=== PATIENT | male | born 1950 | race Asian ===

== ENCOUNTER 2017-04-12 12:49 | Inpatient (IN) | payer MEDICARE ==
[~2017-04-12] VITALS: Wt 70.0 kg
--- NOTE | 2017-04-12 13:09 | ERD ---
ER Documentation Chief Complaint Chief Complaint Patient sent to the emergency room for initiation of palliative care HPI This is a 66-year-old gentleman with chronic respiratory failure, trach, G-tube , chronic encephalopathy who presents for initiation of palliative care. I spoke to Dr. Polanco, palliative care medicine, who states that the patient is being transferred from group home facility because care is inadequate for palliation. He would like the patient admitted under his service for initiation of palliative care. He is okay with fluids. Patient arrives nonverbal, further history is limited other than it was noted the patient is having fevers on and off and possibly has an infection. ROS Nonverbal patient Allergies Allergies: Coded Allergies: Penicillins (Unverified Allergy, Unknown, 03/09/17) Sulfa (Sulfonamide Antibiotics) (Unverified Allergy, Unknown, 03/09/17) PMhx/Soc As described in HPI FmHx Family History: No diabetes Physical Exam Vitals Vital Signs Date Time Temp Pulse Resp B/P Pulse Ox O2 Delivery O2 Flow Rate FiO2 04/12/17 13:06 99.5 85 18 114/81 95 Physical Exam General: No significant distress Head: Normocephalic, atraumatic. Eyes: No scleral icterus ENT: Moist mucous membranes Neck: Supple, no lymphadenopathy Respiratory: Rhonchorous, mechanical breath sounds Cardiovascular: RRR, no murmurs, rubs, or gallops Abdominal: Soft, non-tender, non-distended, no peritoneal signs : Deferred MSK: Limited movement of all 4 extremities, no bony abnormalities Neurologic: Limited exam, and encephalopathic, limited movement of all 4 extremities Skin: No rash Psych: Unable to assess Results 24 hrs Current Medications Medications (Trade) Dose Ordered Sig/Jenny Route PRN Reason Start Time Stop Time Status Last Admin Dose Admin Sodium Chloride (NS) 1,000 ml @ 125 mls/hr Q8H IV 04/12/17 13:00 Ondansetron HCl (Zofran Inj) 4 mg BRIDGE ORDER PRN IV NAUSEA AND/OR VOMITING 04/12/17 13:30 04/13/17 13:29 Procedures/MDM MEDICAL DECISION MAKING: This patient presents to the emergency room for initiation of palliative care. The patient has an advanced directive present consistent with DNR, DNI, comfort measures only. Speaking to Dr. Polanco, the recommendation is for fluids alone. No further interventions including no antibiotics. The patient will be initiated for palliative care. This appears to be consistent with the patient' s and family's wishes. Family is not available at time of evaluation. ER COURSE: An IV was established and the patient was started on maintenance rate normal saline. Dr. Polanco was notified and will admit the patient. Admit orders were initiated. The patient does not have a fever in the emergency room and no antipyretics are indicated at this time. The patient appears comfortable. DISPOSITION PLAN: Medical surgical admission CONSULTATION: Accepting care team and consultations: I discussed the current laboratory data, diagnostic imaging and emergency care provided. Admitting team: Dr. Polanco Admitting team indication: Insurance directed Departure Diagnosis: Primary Impression: Encephalopathy chronic Additional Impressions: Chronic respiratory failure Respiratory failure complication: unspecified whether with hypoxia or hypercapnia Qualified Code: J96.10 - Chronic respiratory failure, unspecified whether with hypoxia or hypercapnia DNR (do not resuscitate) Comfort measures only status Condition: MARIETTA Mccarty MD Apr 12, 2017 13:09
[2017-04-12] MEDS ORDERED: ONDANSETRON 4 MG INJ IV PRN (13:30)
[2017-04-12] MEDS: SOD CHLORIDE 0.9% 1,000 ML IV SCH ×2 (13:57→19:47)
[2017-04-12 14:00] VITALS: TEMP 98.9
[2017-04-12] MEDS ORDERED: ALLO100T GTB (14:02)
[2017-04-12] MEDS ORDERED: AMAN100T GTB (14:04)
[2017-04-12] MEDS ORDERED: FOLI-49 GTB (14:05)
[2017-04-12] MEDS ORDERED: AMLO5TAB4 GTB (14:05)
[2017-04-12] MEDS ORDERED: LACT1CAP4 GTB (14:07)
[2017-04-12] MEDS ORDERED: UDKCL40 GTB (14:09)
[2017-04-12] MEDS ORDERED: PROP20TA4 GTB (14:10)
[2017-04-12] MEDS ORDERED: THIA100T10 GTB (14:11)
[2017-04-12] MEDS ORDERED: CHOL4POW PO (14:12)
[2017-04-12] MEDS ORDERED: LANS30CA GTB (14:14)
[2017-04-12] MEDS ORDERED: NYST1000 PO (14:16)
[2017-04-12] MEDS ORDERED: MULTI GTB (14:18)
[2017-04-12] MEDS ORDERED: POLY15DR25 BOTH EYES (14:18)
[2017-04-12] MEDS ORDERED: MAGN400O4 GTB (14:19)
[2017-04-12] MEDS ORDERED: NA P133E10 RC (14:20)
[2017-04-12] MEDS ORDERED: BISA10SU55 RC (14:20)
[2017-04-12 14:41] VITALS: BP 123/74; PULSE 88; RESP 18
[2017-04-12] MEDS ORDERED: ALBUTEROL/IPRATROPIUM (NEB) 3 ML AMP HHN PRN (15:30)
[2017-04-12] MEDS ORDERED: morphine 2 MG INJ IV PRN (16:30)
[2017-04-12] MEDS ORDERED: LORAZEPAM 2 MG INJ IV PRN (16:30)
[2017-04-12 20:20] VITALS: BP 113/60
[2017-04-13 02:15] VITALS: BP 120/72; RESP 18
[2017-04-13] MEDS: SOD CHLORIDE 0.9% 1,000 ML IV SCH ×3 (05:47→22:54)
[2017-04-13 08:30] VITALS: BP 138/74; RESP 18
--- NOTE | 2017-04-13 12:54 | CONS ---
Date/Time of Note Date/Time of Note DATE: 04/13/17 TIME: 12:44 Assessment/Plan Assessment/Plan Additional Assessment/Plan We will institute comfort measures Consultation Date/Type/Reason Admit Date/Time Apr 12, 2017 at 13:02 Type of Consultation: Palliative care Hx of Present Illness This is a 66-year-old gentleman with a history of traumatic injury approximately 4 months prior to this hospitalization. He fell down stairs striking the back of his neck and his head was taken to a local emergency room was found to have a subdural hematoma underwent evacuation. His at the bedside and he has been responsive since that time. He has been seen at multiple different hospitals multiple different consultants neurosurgeon neurologist the consensus that he will not improve clinically he is in a vegetative state and will remain like this for the rest of his life. She has and son is made it very clear that he would never want to live like this there is a DURABLE POWER OF EMERGENCY DEPT TECH for healthcare available. 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 The hopes desires have been explored and that is that he has a peaceful nonpainful end of life off genuine with comfort medications as necessary. Explored her fears and worries that he would not in pain or extremely short of breath they have strong spiritual and ethical believes that he should comfortably and family members should follow his directives. Locations are good in family members have my direct cell phone number patient's family physicians have had clinical experience life care. Made a prognosis is 4 hours off the mental oxygen. Pain and symptom management have been addressed with family psychosocial social issues I will refer patient's to [facility] at a later date to go issues have been addressed. We will institute comfort measures now. Social History Smoking Status: Unknown if ever smoked Exam/Review of Systems Vital Signs Vitals Vital Signs Date Time Temp Pulse Resp B/P Pulse Ox O2 Delivery O2 Flow Rate FiO2 04/13/17 08:30 98.6 97 18 138/74 97 04/13/17 07:53 7.0 04/13/17 07:30 35 04/13/17 07:30 Aerosol T Tube Intake and Output 04/12/17 04/12/17 04/13/17 15:00 23:00 07:00 Intake Total 900 ml 950 ml Balance 900 ml 950 ml Exam Constitutional: frail, other (Short of breath) ENMT: nl external ears & nose, nl lips & teeth, nl nasal mucosa & septum Respiratory: clear to auscultation, normal air movement Cardiovascular: nl pulses, regular rate and rhythm Neurological: other (Unresponsive any verbal or tactile stimulation bilateral fixed pupils approximately 5 mm sluggish oculocephalics), unresponsive Medications Medications Current Medications Sodium Chloride (NS) 1,000 ml @ 125 mls/hr Q8H IV Last administered on t 05:47; Admin Dose 125 MLS/HR; Start 04/12/17 at 13:00 Morphine Sulfate (morphine) 2 mg Q3 PRN IV PAIN; Start 04/12/17 at 16:30 Lorazepam (Ativan) 1 mg Q4 PRN IV AGITATION; Start 04/12/17 at 16:30 NURY GRIJALVA Apr 13, 2017 12:54
[2017-04-13] MEDS: ATROPINE SULFATE 1% 5ML SL PRN ×2 (18:22→23:32)
[2017-04-14] MEDS ORDERED: VITAMIN A & D 5 GM OINT PACKET TOP ONE (05:45)
[2017-04-14] MEDS: ATROPINE SULFATE 1% 5ML SL PRN ×3 (06:50→19:19)
--- NOTE | 2017-04-14 07:38 | CONS ---
Date/Time of Note Date/Time of Note DATE: 04/14/17 TIME: 07:37 Assessment/Plan Assessment/Plan Chief Complaint/Hosp Course This is a 66-year-old gentleman with a history of traumatic injury approximately 4 months prior to this hospitalization. He fell down stairs striking the back of his neck and his head was taken to a local emergency room was found to have a subdural hematoma underwent evacuation. His at the bedside and he has been responsive since that time. He has been seen at multiple different hospitals multiple different consultants neurosurgeon neurologist the consensus that he will not improve clinically he is in a vegetative state and will remain like this for the rest of his life. She has and son is made it very clear that he would never want to live like this there is a DURABLE POWER OF FLEET ASSISTANT for healthcare available. 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 The hopes desires have been explored and that is that he has a peaceful nonpainful end of life off genuine with comfort medications as necessary. Explored her fears and worries that he would not in pain or extremely short of breath they have strong spiritual and ethical believes that he should comfortably and family members should follow his directives. Locations are good in family members have my direct cell phone number patient's family physicians have had clinical experience life care. Made a prognosis is 4 hours off the mental oxygen. Pain and symptom management have been addressed with family psychosocial social issues I will refer patient's to [facility] at a later date to go issues have been addressed. We will institute comfort measures now. 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 He remains comfortable on T-tube he is on comfort measures only I have spoken to his family members daily Dr. Johnston and I expect her son to be involved he is a medical student. Plan is to continue with comfort measures Consultation Date/Type/Reason Admit Date/Time Apr 12, 2017 at 13:02 Initial Consult Date Type of Consultation: Palliative care Exam/Review of Systems Vital Signs Vitals Vital Signs Date Time Temp Pulse Resp B/P Pulse Ox O2 Delivery O2 Flow Rate FiO2 04/14/17 04:14 100 20 96 21 04/13/17 12:21 Aerosol 8.0 T Tube 04/13/17 08:30 98.6 138/74 Intake and Output 04/13/17 04/13/17 04/14/17 14:59 22:59 06:59 Intake Total 800 ml 160 ml Output Total 200 ml 500 ml Balance 800 ml -40 ml -500 ml Medications Medications Current Medications Morphine Sulfate (morphine) 2 mg Q3 PRN IV PAIN; Start 04/12/17 at 16:30 Lorazepam (Ativan) 1 mg Q4 PRN IV AGITATION; Start 04/12/17 at 16:30 Atropine Sulfate 2 drop 2 drop Q1HWA PRN SL DRY MOUTH Last administered on 06:50; Admin Dose 2 DROP; Start 04/13/17 at 15:00 Sodium Chloride (NS) 1,000 ml @ 0 mls/hr Q0M IV Last administered on 22:54; Admin Dose 10 MLS/HR; Start 04/13/17 at 15:00 NURY GRIJALVA Apr 14, 2017 07:38
[2017-04-15] MEDS: ATROPINE SULFATE 1% 5ML SL PRN ×6 (02:50→22:47)
[2017-04-15] MEDS ORDERED: [UNRECOGNIZED DRUG - OTHER] IV SCH ×2 (09:00)
[2017-04-15] MEDS ORDERED: D10W IV SCH ×2 (09:00)
[2017-04-15] MEDS ORDERED: DEXTROSE IV SCH ×2 (09:00)
[2017-04-15] MEDS ORDERED: 1/2 NS IV SCH ×2 (09:00)
[2017-04-15] MEDS ORDERED: morphine 2 MG INJ IV SCH (12:00)
--- NOTE | 2017-04-15 14:52 | CONS ---
Date/Time of Note Date/Time of Note DATE: 04/15/17 TIME: 14:47 Assessment/Plan Assessment/Plan Chief Complaint/Hosp Course This is a 66-year-old gentleman with a history of traumatic injury approximately 4 months prior to this hospitalization. He fell down stairs striking the back of his neck and his head was taken to a local emergency room was found to have a subdural hematoma underwent evacuation. His at the bedside and he has been responsive since that time. He has been seen at multiple different hospitals multiple different consultants neurosurgeon neurologist the consensus that he will not improve clinically he is in a vegetative state and will remain like this for the rest of his life. She has and son is made it very clear that he would never want to live like this there is a DURABLE POWER OF COGNOS REPORT DEVELOPER for healthcare available. 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 The hopes desires have been explored and that is that he has a peaceful nonpainful end of life off genuine with comfort medications as necessary. Explored her fears and worries that he would not in pain or extremely short of breath they have strong spiritual and ethical believes that he should comfortably and family members should follow his directives. Locations are good in family members have my direct cell phone number patient's family physicians have had clinical experience life care. Made a prognosis is 4 hours off the mental oxygen. Pain and symptom management have been addressed with family psychosocial social issues I will refer patient's to [facility] at a later date to go issues have been addressed. We will institute comfort measures now. Problems: Additional Assessment/Plan Respiratory distress Status post trach and PEG Altered mental status Past medical history of subdural hematoma Vegetative condition Fluid and electrolyte abnormalities by history Patient will be admitted respiratory status will be stabilized. I have been asked by family members to allow proceed with symptom management not aggressive intervention. At the time that I examined patient and I switched his CODE STATUS from DO NOT RESUSCITATE to comfort measures but treatment of underlying infection if necessary. Family request discontinuing oxygen no IV fluids. Consultation Date/Type/Reason Admit Date/Time Apr 12, 2017 at 13:02 Type of Consultation: Palliative care Reason for Consultation This is a history and physical addendum for this 66-year-old gentleman who had a fall and injury to his head approximately 6 months prior to presentation here at [facility]. His gentleman sustained an reversible tree to his brain underwent CT guided evacuation of hematoma however postoperatively he has not had any recovery and remains vegetative. He had a brief admission and stay and [facility] patient has been PEG trach was sent to a [facility]dc facility. They are I received a phone call from family members stating that he was having increasing secretions respiratory distress and that his symptoms were not being controlled. The complained that he was more obtunded than his usual, although that is difficult to elaborate on when I asked the family. Family members denies vomiting, rigors, diarrhea. He has been treated appropriately for symptom management but family members were not comfortable with the level of care he needed at a fdc facility as compared to being transferred to a acute care facility. Emphasis placed on deterioration of his respiratory condition this is well documented in the history and physical also done by the emergency room doctor at [facility]. Exam/Review of Systems Vital Signs Vitals Vital Signs Date Time Temp Pulse Resp B/P Pulse Ox O2 Delivery O2 Flow Rate FiO2 04/15/17 05:37 97 21 04/14/17 04:14 100 20 04/13/17 12:21 Aerosol 8.0 T Tube 04/13/17 08:30 98.6 138/74 Intake and Output 04/14/17 04/14/17 04/15/17 15:00 23:00 07:00 Intake Total 100 ml Output Total 900 ml 500 ml Balance -900 ml -400 ml Exam Constitutional: distress, other (Noncommunicative) Eyes: EOMI, PERRL, nl conjunctiva, nl lids, nl sclera ENMT: nl external ears & nose, nl lips & teeth, nl nasal mucosa & septum Neck: non-tender, supple Respiratory: congested cough, crackles/rales, diminished breath sounds, intercostal retraction, labored breathing Cardiovascular: nl pulses, regular rate and rhythm, No S3, No S4, No bruits, No diastolic murmur, No edema, No gallop, No irregular rhythm, No jugular venous distention (JVD), No murmurs/extra sounds, No other, No rub, No systolic murmur Gastrointestinal: other (Grossly normal) Skin: diaphoresis, nl turgor Medications Medications Current Medications Lorazepam 1 mg 1 mg Q4 PRN IV AGITATION; Start 04/12/17 at 16:30 Sodium Chloride (NS) 1,000 ml @ 0 mls/hr Q0M IV Last administered on 22:54; Admin Dose 10 MLS/HR; Start 04/13/17 at 15:00 Morphine Sulfate (morphine) 1 mg Q6 IV Last administered on 04/15/17 12:17; Admin Dose 1 MG; Start 04/15/17 at 12:00 Atropine Sulfate (Atropine Sulfate) 2 drop Q2H PRN SL TERMINAL CONGESTION; Start 04/15/17 at 15:00 NURY GRIJALVA Apr 15, 2017 14:52
--- NOTE | 2017-04-15 14:59 | CONS ---
Date/Time of Note Date/Time of Note DATE: 04/15/17 TIME: 14:53 Assessment/Plan Assessment/Plan Chief Complaint/Hosp Course This is a 66-year-old gentleman with a history of traumatic injury approximately 4 months prior to this hospitalization. He fell down stairs striking the back of his neck and his head was taken to a local emergency room was found to have a subdural hematoma underwent evacuation. His at the bedside and he has been responsive since that time. He has been seen at multiple different hospitals multiple different consultants neurosurgeon neurologist the consensus that he will not improve clinically he is in a vegetative state and will remain like this for the rest of his life. She has and son is made it very clear that he would never want to live like this there is a DURABLE POWER OF VENEER CLIPPER for healthcare available. 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 The hopes desires have been explored and that is that he has a peaceful nonpainful end of life off genuine with comfort medications as necessary. Explored her fears and worries that he would not in pain or extremely short of breath they have strong spiritual and ethical believes that he should comfortably and family members should follow his directives. Locations are good in family members have my direct cell phone number patient's family physicians have had clinical experience life care. Made a prognosis is 4 hours off the mental oxygen. Pain and symptom management have been addressed with family psychosocial social issues I will refer patient's to [facility] at a later date to go issues have been addressed. We will institute comfort measures now. Problems: Additional Assessment/Plan This is an addendum note to my admitting history and physical. Patient was transferred from [facility] unit with respiratory difficulty, increasing secretions overall change in clinical condition. This information taken directly from patients . Patient was being seen by primary care physician but according to family symptoms were still not controlled therefore patient was transferred to [facility]. Admitting diagnosis encephalopathy and respiratory failure has been documented by the admitting emergency room physician. I agreed with that admitting diagnosis when I was called for admitting orders in consultation with the emergency room physician. Family members have no desire for aggressive care other than treatment for symptoms to make sure that he does not have shortness of breath out of control at the time of his . In all likelihood this general during his hospitalization. I will call for a hospice evaluation however patient symptoms currently will be addressed acutely. Consultation Date/Type/Reason Admit Date/Time Apr 12, 2017 at 13:02 Type of Consultation: Palliative care Exam/Review of Systems Vital Signs Vitals Vital Signs Date Time Temp Pulse Resp B/P Pulse Ox O2 Delivery O2 Flow Rate FiO2 04/15/17 05:37 97 21 04/14/17 04:14 100 20 04/13/17 12:21 Aerosol 8.0 T Tube 04/13/17 08:30 98.6 138/74 Intake and Output 04/14/17 04/14/17 04/15/17 15:00 23:00 07:00 Intake Total 100 ml Output Total 900 ml 500 ml Balance -900 ml -400 ml Exam Respiratory: crackles/rales, diminished breath sounds, intercostal retraction, wheezing Cardiovascular: irregular rhythm Neurological: other (Unresponsive to any verbal or tactile stimulation), unresponsive Medications Medications Current Medications Lorazepam 1 mg 1 mg Q4 PRN IV AGITATION; Start 04/12/17 at 16:30 Sodium Chloride (NS) 1,000 ml @ 0 mls/hr Q0M IV Last administered on 22:54; Admin Dose 10 MLS/HR; Start 04/13/17 at 15:00 Morphine Sulfate (morphine) 1 mg Q6 IV Last administered on 04/15/17 12:17; Admin Dose 1 MG; Start 04/15/17 at 12:00 Atropine Sulfate (Atropine Sulfate) 2 drop Q2H PRN SL TERMINAL CONGESTION; Start 04/15/17 at 15:00 NURY GRIJALVA Apr 15, 2017 14:59
--- NOTE | 2017-04-15 15:06 | CONS ---
Date/Time of Note Date/Time of Note DATE: 04/15/17 TIME: 14:59 Assessment/Plan Assessment/Plan Chief Complaint/Hosp Course More symptomatic today with increasing respiratory secretions and labored breathing. I've spoken to his numerous times last this morning who is distraught, crying stating that she cannot stay at the hospital she is ill and needs to [id number]. Patient was admitted to [facility] with increasing respiratory symptoms, increasing secretions family members requested no laboratories x-rays just treat patient with comfort care medications. Family refused respiratory therapy or continue supplemental oxygen. Problems: Additional Assessment/Plan Continue symptom management for respiratory symptoms with atropine also [place] low dose morphine for respiratory symptoms. Morphine continuous will be instituted after have consulted with hospice colleague and with the approval of patient's family. Patient will be transferred to general inpatient care within the next 24 hours after patients returns currently she is too ill to address any further level of care issues Consultation Date/Type/Reason Admit Date/Time Apr 12, 2017 at 13:02 Type of Consultation: Palliative care Exam/Review of Systems Vital Signs Vitals Vital Signs Date Time Temp Pulse Resp B/P Pulse Ox O2 Delivery O2 Flow Rate FiO2 04/15/17 05:37 97 21 04/14/17 04:14 100 20 04/13/17 12:21 Aerosol 8.0 T Tube 04/13/17 08:30 98.6 138/74 Intake and Output 04/14/17 04/14/17 04/15/17 15:00 23:00 07:00 Intake Total 100 ml Output Total 900 ml 500 ml Balance -900 ml -400 ml Exam Respiratory: congested cough, crackles/rales, diminished breath sounds, labored breathing Medications Medications Current Medications Lorazepam 1 mg 1 mg Q4 PRN IV AGITATION; Start 04/12/17 at 16:30 Sodium Chloride (NS) 1,000 ml @ 0 mls/hr Q0M IV Last administered on t 22:54; Admin Dose 10 MLS/HR; Start 04/13/17 at 15:00 Morphine Sulfate (morphine) 1 mg Q6 IV Last administered on 04/15/17 12:17; Admin Dose 1 MG; Start 04/15/17 at 12:00 Atropine Sulfate (Atropine Sulfate) 2 drop Q2H PRN SL TERMINAL CONGESTION; Start 04/15/17 at 15:00 NURY GRIJALVA Apr 15, 2017 15:06
[2017-04-15] MEDS: SOD CHLORIDE 0.9% 1,000 ML IV SCH (15:38)
[2017-04-15] MEDS: morphine (DRIP) 100 MG/100 ML 100 ML IV SCH (18:38)
--- NOTE | 2017-04-16 09:46 | CONS ---
Date/Time of Note Date/Time of Note DATE: 04/16/17 TIME: 09:45 Assessment/Plan Assessment/Plan Additional Assessment/Plan Please refer to H&P addendum completed and dated April 15, 2017. Consultation Date/Type/Reason Admit Date/Time Apr 12, 2017 at 13:02 Type of Consultation: Palliative care Exam/Review of Systems Vital Signs Vitals Vital Signs Date Time Temp Pulse Resp B/P Pulse Ox O2 Delivery O2 Flow Rate FiO2 04/15/17 21:59 96 20 96 21 04/13/17 12:21 Aerosol 8.0 T Tube 04/13/17 08:30 98.6 138/74 Intake and Output 04/15/17 04/15/17 04/16/17 15:00 23:00 07:00 Intake Total 45 ml 75 ml 145.5 ml Output Total 550 ml 450 ml Balance 45 ml -475 ml -304.5 ml Medications Medications Current Medications Lorazepam 1 mg 1 mg Q4 PRN IV AGITATION; Start 04/12/17 at 16:30 Sodium Chloride (NS) 1,000 ml @ 0 mls/hr Q0M IV Last administered on 15:38; Admin Dose 10 MLS/HR; Start 04/13/17 at 15:00 Atropine Sulfate 2 drop 2 drop Q2H PRN SL TERMINAL CONGESTION Last administered on 04/15/17 22:47; Admin Dose 2 DROP; Start 04/15/17 at 15:00 Morphine Sulfate/ Sodium Chloride (morphine) 100 ml @ 0.5 mls/hr Q24H IV Last administered on 04/15/17 18:38; Admin Dose 0.5 MLS/HR; Start 04/15/17 at 18: 30 NURY GRIJALVA Apr 16, 2017 09:46
--- NOTE | 2017-04-16 10:00 | HP ---
Date/Time of Note Date/Time of Note DATE: 04/16/17 TIME: 09:52 Assessment/Plan VTE Prophylaxis VTE Prophylaxis Intervention: contraindicated VTE Contraindication Reason: anticoagulation not tolerated Lines/Catheters IV [facility] Peripheral IV Urinary Cath still in place: Yes HPI/ROS Admit Date/Time Admit Date/Time Apr 12, 2017 at 13:02 Hx of Present Illness Additional Assessment/Plan This is an addendum note to my admitting history and physical. Patient was transferred from [facility] unit with respiratory difficulty, increasing secretions overall change in clinical condition. This information taken directly from patients . Patient was being seen by primary care physician but according to family symptoms were still not controlled therefore patient was transferred to [facility]. Admitting diagnosis encephalopathy and respiratory failure has been documented by the admitting emergency room physician. I agreed with that admitting diagnosis when I was called for admitting orders in consultation with the emergency room physician. Family members have no desire for aggressive care other than treatment for symptoms to make sure that he does not have shortness of breath out of control at the time of his . In all likelihood this general during his hospitalization. I will call for a hospice evaluation however patient symptoms currently will be addressed acutely. PMH/Family/Social Social History Smoking Status: Unknown if ever smoked Exam/Review of Systems Vital Signs Vitals Vital Signs Date Time Temp Pulse Resp B/P Pulse Ox O2 Delivery O2 Flow Rate FiO2 04/15/17 21:59 96 20 96 21 04/13/17 12:21 Aerosol 8.0 T Tube 04/13/17 08:30 98.6 138/74 Intake and Output 04/15/17 04/15/17 04/16/17 14:59 22:59 06:59 Intake Total 45 ml 75 ml 145.5 ml Output Total 550 ml 450 ml Balance 45 ml -475 ml -304.5 ml Exam Constitutional: other (Noncommunicative trach and PEG) Eyes: EOMI, PERRL, nl conjunctiva, nl lids, nl sclera Respiratory: clear to auscultation, congested cough, crackles/rales, diminished breath sounds, intercostal retraction, labored breathing, normal air movement, other, respirations, tactile fremitus, wheezing Cardiovascular: nl pulses, regular rate and rhythm Neurological: other, unresponsive (Unresponsive to any verbal or tactile stimulation sluggish bilateral pupillary light reflex corneals doll's eyes, no spontaneous movement) Medications Medications Current Medications Lorazepam 1 mg 1 mg Q4 PRN IV AGITATION; Start 04/12/17 at 16:30 Sodium Chloride (NS) 1,000 ml @ 0 mls/hr Q0M IV Last administered on 15:38; Admin Dose 10 MLS/HR; Start 04/13/17 at 15:00 Atropine Sulfate 2 drop 2 drop Q2H PRN SL TERMINAL CONGESTION Last administered on 04/15/17 22:47; Admin Dose 2 DROP; Start 04/15/17 at 15:00 Morphine Sulfate/ Sodium Chloride (morphine) 100 ml @ 0.5 mls/hr Q24H IV Last administered on 04/15/17 18:38; Admin Dose 0.5 MLS/HR; Start 04/15/17 at 18: 30 NURY GRIJALVA Apr 16, 2017 10:00
[2017-04-16 10:15] VITALS: PULSE 108; RESP 22
[2017-04-16] MEDS: morphine (DRIP) 100 MG/100 ML 100 ML IV SCH (18:30)
[2017-04-16 20:12] VITALS: BP 129/77; RESP 19
[2017-04-16] MEDS: ATROPINE SULFATE 1% 5ML SL PRN (23:29)
[2017-04-17] MEDS: ATROPINE SULFATE 1% 5ML SL PRN ×4 (04:44→19:24)
[2017-04-17 07:22] VITALS: BP 121/73; RESP 19
[2017-04-17] MEDS: morphine (DRIP) 100 MG/100 ML 100 ML IV SCH (11:17)
--- NOTE | 2017-04-17 14:43 | DS ---
Date/Time of Note Date/Time of Note DATE: 04/17/17 TIME: 14:41 Discharge Summary Admission/Discharge Info Admit Date/Time Apr 12, 2017 at 13:02 Discharge Date/Time 04/12/2017 Discharge Diagnosis 04/17/2017 Patient Condition: Guarded Hx of Present Illness Additional Assessment/Plan This is an addendum note to my admitting history and physical. Patient was transferred from alf unit with respiratory difficulty, increasing secretions overall change in clinical condition. This information taken directly from patients . Patient was being seen by primary care physician but according to family symptoms were still not controlled therefore patient was transferred to [facility]. Admitting diagnosis encephalopathy and respiratory failure has been documented by the admitting emergency room physician. I agreed with that admitting diagnosis when I was called for admitting orders in consultation with the emergency room physician. Family members have no desire for aggressive care other than treatment for symptoms to make sure that he does not have shortness of breath out of control at the time of his . In all likelihood this general during his hospitalization. I will call for a hospice evaluation however patient symptoms currently will be addressed acutely. Hospital Course Discharge summary Date of admission 04/12/2017 Date of discharge 04/17/2017 Discharge diagnosis Respiratory failure Altered mental status Vegetative state Status post head trauma Subdural hematoma History of hypertension Hyperlipidemia Hospital course Patient was admitted to [facility] MedSur floor with a diagnosis of worsening respiratory condition with productive cough and according the patient's physician general deterioration in his overall clinical condition. Patient was admitted to the hospital and at the time of admission she has decided at patient's should be transitioned to comfort measures only. Pulmonary toilet was continued for 24 hours after admission and then discontinue patient's respiratory condition continued to deteriorate. Started off on low dose of morphine and Ativan as needed until his condition stabilized. He will be transitioned to oral medications at the outside medical facility alf unit and has been cleared to be discharged from acute care. Patient had been seen by hospice evaluation and hospital felt that he was not a candidate for general inpatient care. Discharge medications Morphine 1 mg q. 4 as needed Ativan 1 mg every 4 as needed Follow-up Primary care provider Condition on discharge Home Meds Reported Medications Na Phos,M-B/Na Phos,Di-Ba (ENEMA [id number]) 133 Ml Enema, 133 ML RC DAILY Y for CONSTIPATION, ENEMA 04/12/17 Bisacodyl (Dulcolax) 10 Mg Supp.rect, 10 MG RC DAILY Y for CONSTIPATION, SUPP.RECT 04/12/17 Magnesium Hydroxide* (Milk Of Magnesia*) 400 Mg/5 Ml Oral.susp, 30 ML GTB QHS, ML 04/12/17 Multivitamins* (Theragran*) 1 Tab Tab, 1 TAB GTB DAILY, TAB 04/12/17 Polyvinyl Alcohol (Tears Again) 15 Ml Drops, 1 DRP BOTH EYES EVERY 1 HOUR Y for DRY EYES, BOTTLE 04/12/17 Nystatin (Nystatin) 100,000 Unit/1 Ml Oral.susp, 5 ML PO QID, #60 ML DIP AND SWAB IN 5ML SOLN BRUSH MOUTH AND TOUNGE THEN SUCTION 04/12/17 Lansoprazole* (Lansoprazole*) 30 Mg Capsule.dr, 30 MG GTB DAILY, CAP AT 1130AM MIX WITH APPLE SAUCE THEN FLUSH WITH 40MLS OF APPLE JUICE 04/12/17 Choestyramine* (Cholestyramine* Packet) 4 Gm Powd.pack, 4 GM PO TID, PACKET 04/12/17 Thiamine* (Thiamine*) 100 Mg Tablet, 100 MG GTB DAILY, TAB 04/12/17 Propranolol Hcl* (Propranolol Hcl*) 20 Mg Tablet, 20 MG GTB BID, TAB HOLD FOR SBP <110 OR HR <60 04/12/17 Potassium Chloride* (KCl*) 40 Meq/30 Ml Soln, 20 MEQ GTB DAILY, MEQ MIX WITH 120ML OF WATER 04/12/17 Lactobacillus Acidophilus/Pect (Acidophilus-Pectin Capsule) 1 Each Capsule, 1 EACH GTB BID, CAP 04/12/17 Folic Acid* (Folic Acid*) 1 Mg Tablet, 1 MG GTB DAILY, TAB 04/12/17 Amlodipine Besylate* (Norvasc*) 5 Mg Tablet, 5 MG GTB BID, TAB HOLD FOR SBP<110 04/12/17 Amantadine Hcl* (Amantadine Hcl*) 100 Mg Tablet, 200 MG GTB BID, #30 TAB SOLUTION 04/12/17 Allopurinol* (Allopurinol*) 100 Mg Tablet, 100 MG GTB DAILY, TAB 04/12/17 Primary Care Provider Serge Vega MD Time spent on discharge: > 30 minutes NURY GRIJALVA Apr 17, 2017 14:43
--- NOTE | 2017-04-17 14:58 | PDOCDIS ---
Discharge Instructions DIAGNOSIS Discharge Diagnosis 04/17/2017 CONDITION Patient Condition: Guarded HOME CARE INSTRUCTIONS: Diet Instructions: ACTIVITY: Bathing Restrictions: Sponge Bath FOLLOW UP/APPOINTMENTS Follow-up Plan F/U NURY Almaguer Apr 17, 2017 14:58
[2017-04-18] MEDS: ATROPINE SULFATE 1% 5ML SL PRN ×3 (08:45→18:53)
[2017-04-18] MEDS: morphine (DRIP) 100 MG/100 ML 100 ML IV SCH (11:17)
[2017-04-18 20:00] VITALS: BP 112/65; RESP 18
== END 2017-04-18 20:50 | DRG 189 ==
LOC: E/R 12:49 → MS1 13:02
PROVIDERS: ADMIT Emergency Medicine Hospice and Palliative Medicine; ATTEND Emergency Medicine Hospice and Palliative Medicine
DX: J96.10 Chronic respiratory failure, unspecified whether with hypoxia or hypercapnia (principal); R40.3 Persistent vegetative state; G93.40 Encephalopathy, unspecified; Z93.0 Tracheostomy status; J96.90 Respiratory failure, unspecified, unspecified whether with hypoxia or hypercapnia; Z51.5 Encounter for palliative care; Z87.820 Personal history of traumatic brain injury; Z66 Do not resuscitate; Z93.1 Gastrostomy status
CPT/HCPCS: 87081; J2270; J7030